=== PATIENT | female | born 1975 | race Asian ===

== ENCOUNTER → 2017-05-24 | Outpatient (CLI) | payer BC | LOC: BRMIMAGING 08:30 | PROVIDERS: ATTEND Family Medicine | DX: Z12.31 Encounter for screening mammogram for malignant neoplasm of breast (principal) | CPT/HCPCS: G0202 ==

== ENCOUNTER 2018-04-29 11:44 | Day surgery (SDC) | payer BC ==
--- NOTE | 2018-04-29 00:35 | PDGENHP ---
History and Physical - Chief Complaint RIGHT HIP PAIN - History of Present Illness Diagnosis: 1. ~~Right Florentino Hip Dyplasia; Left Borderline Dysplasia, RIGHT SIDE SYMPTOMATIC 2.~~~Bilateral~Femoroacetabular impingement (ILA) Cam type,~with~resultant labral tear 3. Minimal Early OA, medial joint space narrowing Rt hip HISTORY OF PRESENT ILLNESS: Susana Hiis a 42 y.o.~very~~active female~who I have had the pleasure to consult on today. 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 ~Susana Hienjoys trail running, hiking, rock climbing, cycling, swimming, cross country skiing, and snowboarding. Susana Lama's~Right~hip pain started~July 2016 after falling while snowboarding, with~little~recalled trauma or injury, and with no~previous complaints. Susana Hi has~a known history of hip dysplasia. Susana Lama was referred by Dr. Pena. Presentation today is of~anterior~right~hip pain. ~The hip~does not~wake her~at night and does~click and catch on her. Sitting~can be uncomfortable~for her.~ Susana Hidoes~report suffering from lower back pain episodes. She has posterior thigh pain pain down right leg but does not go past knee. Susana Hihas not~participated in physical therapy and has not~tried other conservative measures..~She~has not~received sufficient symptomatic improvement. Susana Hihas not~utilized medication for pain management. Susana Hidenies issues with the left~hip. ~ Susana Hiunderstands that she~has a hip and pelvis problem which should be researched and wishes to get a better understanding of her~hip status, followed by an establishment of a treatment strategy, hoping she~would be able to get back to her~well being active life. History: Past medical history:~~ None which is relevant~ Relevant familial history:~None which is relevant~ Past surgical history:~ None Susana Hihas never received general anesthesia. I have reviewed, verified and agree with the past medical, surgical, family and social history. Current Medications:~currently has no medications in their medication list. ALLERGIES:~has No Known Allergies. Objective: Physical Examination: Susana Hiis 5~feet 7~inches tall and weighs 125~Lbs. Susana Hiis AAO x3; she~is well-nourished, in NAD. Skin is warm and dry. ~Breathing is non-labored. ~CV with RRR by pulse. Abdomen is soft, NTND. Currently,~she~walks with a normal~gait. Trendelenburg sign is~negative~and proprioception is reduced,~right~side. She~presents with mild~signs of joint laxity. Beightons Score:~1 Lower spine examination is~negative~for sciatic or femoral nerve irritation with negative~SLR &~femoral stretch tests. Range of motion of the spine is normal~for flexion, extension, and rotations, with no~associated pain. Strength, Sensation and pulses are~normal -~bilaterally~BILATERAL GREAT TOE PARATHESIA and NUMBNESS Ankles and knees exams are~normal~and no~mal-alignment is evident. She~has~leg length discrepancy.~LEFT SHORT 1 CM Thigh circumference is~symmetric~with no evidence for muscle atrophy~on both~ sides. Hip ROM (degrees): FL ER At 90~hip FL IR At 90~hip FL AB AD EX IR Neutral hip ER Neutral hip R 110 45 40 40 5 10 45 30 L 115 50 30 40 5 10 55 35 Specific hip and pelvis tests: Impingement Test MIRIAM Roll Add. Longus R +++ +++ Negative Negative L Negative Negative Negative Negative Glut. Med ITB Posterior Imp R Negative 5/5 strength Negative 5/5 strength Negative L Negative 5/5 strength Negative 5/5 strength Negative Squeeze test measured~normal Bony Symphysis pubis is~pain free~to touch while concentric activity of the rectus abdominis, does not~produce pain at its insertion. Ilio Psos specific tests are~negative for pain during cycling for~both hips~and remarkable for non painful snap HF has~no pain, good strength~both hips. Right hip~capsule tenderness Greater trochanteric burse is~painful~on the right hip. Piriformis tests: FAIR is~negative,~with no~local signs of neuritis related to sciatic nerve. SIJs examination is~normal~with normal~MIRIAM in relation and local tenderness. Hamstrings tests are~negative~functional contraction and negative~tendinopathy both hips. On a daily basis, the following percentages reflectJosh Lama's overall total pain : Deep hip:~80% Right GT:~20% Imaging: Radiology studies which I have personally reviewed, analyzed and measured are below: XR: AP of the hip and pelvis: Performed in a~good~technique Coccyx~is at the level of the~pubic symphysis 0~degrees [place] Lines are~preserved. Minimal~Pathological signs are seen in the Symphysis Pubis. Minimal~Pathological signs are seen at the Ischial tuberosity. ~ Specific measurements show: NSA~ LCE Sourcil~Angle Sharp's angle Lat. Cam Lat. Pincer C.Over~sign Head~Coverage % ATDmm R N 17 12 41 + - - 72 N L N 24 5 37 + - - 78 N Pos. wall sign ISS NAD ~~Dysplasia Comments R ++ Negative 15.3~mm ++ L ++ Negative 17.4~mm + Sclerosis Sup. Lat. OA Cysts Joint Space-WBZ Joint Space-Medial R + Negative Negative 5.3~mm 5.7~mm/2.4mm L + Negative Negative 4.8~mm 4.9~mm X Table lateral: Anterior cam lesion is~seen~on both hips. Alpha Angle: ~ Right~76~dergrees Left~67~degrees MRI shows:~labral tear with labral hypertrophy, good cartilage quality, no bone edema or cysts. Impression and plan: Sheree Hiis a 42 y.o.~active female~suffering from symptomatic Right~hip pain due to Hip Dyplasia~and~Femoroacetabular impingement (ILA) Cam type,~with~ resultant labral tear causing significant disability to~her~and altering her~ sport and life activities. She also had early OA signs in the form of medial joint space narrowing. Physical examination, imaging, and~her~story correspond with the diagnosis mentioned above. I explained that hip dysplasia is a condition wherein the hip joint has excessive play~and instability due to a variety of factors, including the depth and adequacy of the socket, the orientation of the femur bone, and ligament laxity around the hip joint. Dysplasia ranges in severity from borderline to florentino, with treatment options being specific to the specific nature of the problem. Left untreated, the instability in the hip joint can cause progressive tearing of the labrum and deterioration of the surface cartilage, ultimately resulting in progressive osteoarthritis of the hip. I explained that femoroacetabular impingement (ILA - Cam type) arises due to a bony or soft tissue conflict between the femur (ball) and acetabulum (socket) caused by an abnormality in the shape of the femoral head and neck. Over time, repetitive impingement can result in damage to the labrum and adjacent surface cartilage within the socket, ultimately giving rise to progressive osteoarthritis of the hip. I explained that although a labral tear can be a source of pain, it is rarely the root of the problem and typically occurs secondary to an underlying abnormality in the shape and mechanics of the hip joint. I reviewed conservative treatment options for Dysplasia and ILA including activity modification to avoid positions of impingement or instability, physical therapy, non-steroidal anti-inflammatory medications, and various injections (corticosteroid and PRP) aimed at reducing inflammation in the hip joint or/and preventing dynamic instability and impingement. PRP injections may promote healing and reduce symptoms in certain cases but it will not repair chronically damaged tissue. Although these measures may help to buy time~and reduce current level of symptoms, they are not a definitive solution to the problem given the underlying abnormality in the shape of the hip joint. Patients who have failed conservative management and continue to experience symptoms are candidates for definitive surgical treatment, which may consist of hip arthroscopy alone or in combination with more invasive bony realignment procedures of the hip socket and/or femur called periacetabular osteotomy (MIRIAM) or derotational femoral osteotomy (DFO). Hip arthroscopy typically includes treating the labrum with either repair or reconstruction of the torn labrum; as well as addressing the underlying abnormalities by restoring the normal shape to the hip joint. If the cartilage is damaged a Microfracture surgical procedure may also be necessary to help stimulate the growth of fibrocartilage. If a patient requires a labral reconstruction or a Microfracture, the initial rehabilitation from the surgery may take longer, but the oysterman results are typically favorable. I reviewed the technical aspects of periacetabular osteotomy (MIRIAM) including risks, benefits, and expected course of recovery.~Susana Lama~understands that MIRIAM is an inpatient procedure carried out through two medium sized incisions on the front and back of the hip joint. The hip socket is cut, realigned, and stabilized with 2 3 internal screws. Risks include infection, bleeding, injury to nearby nerves or vessels, stiffness, persistent pain, instability, failure of bony healing, implant related complications, and venous thromboembolic disease. Rarely, revision surgery may be required to address these problems. Risks, potential complications, side effects and recovery from surgical procedure were discussed in length. We explained how this surgery is an open procedure, and though patients tend to do well in the long-term, it involves significant pain in the first 2-4 weeks post-op and a rather lengthy rehab.~Overall recovery takes approximately 6 12~months depending on the extent of damage and degree of repair. Susana Hiunderstands that she~will undergo hip arthroscopy 1 week prior to the MIRIAM to address damage inside the hip joint. Susana Hiunderstands that hip arthroscopy and MIRIAM are two separate procedures that are best performed one week apart, with the arthroscopy commencing first to "tighten up" any pathology evident in the hip joint (labral repair, etc.) and the MIRIAM open procedure occurring 7-10 days later to realign the acetabulum. We also discuss the implications of the minimal early OA and surgical outcome. Susana Hiwill review the info presented. In order to obtain more detailed information regarding the alignment, orientation, and shape of the bony hip and pelvis I will order a CT scan to be performed. The results of the CT scan, including femoral torsion and acetabular version measured values and 3D images, will aid me in deciding on the best treatment strategy and surgical pre-planning. Susana Hiwill contact us if she~wishes to pursue further treatment in the future. Susana Hiis happy with this plan. I have also supplied~her~with handouts, outlining the expected surgical treatment and rehab involved. I wish~Susana LamaShereeall the best, ~~ NORMA Avila History Information - Allergies/Home Medication List Allergies/Adverse Reactions: No Known Allergies Allergy (Verified 04/08/18 10:03) Home Medications: Ascorbic Acid [Vitamin C 500 mg (*)] 500 mg PO DAILY 04/24/18 [Last Taken Unknown] Cholecalciferol Vit D3 [Vitamin D3 (*)] 1,000 units PO DAILY 04/24/18 [Last Taken Unknown] Herbals/Supplements -Info Only 1 ea PO DAILY 04/24/18 [Last Taken Unknown] [place]-3 Fatty Acids [Fish Oil 1000 mg (*)] 1,000 mg PO DAILY 04/24/18 [Last Taken Unknown] I have personally reviewed and updated: medical history - Social History Smoking Status: Never smoked Review of Systems Review of Systems: Physical Exam Physical Exam:
[2018-04-29] MEDS ORDERED: LIDOCAINE 1% 2 ML INJ ID PRN (12:26)
[2018-04-29] MEDS ORDERED: LR 1,000 ML IV ONE (12:26)
[2018-04-29] MEDS ORDERED: ceFAZolin 2 GM/DEXTROSE 100 ML IV ONE (12:26)
[2018-04-29] MEDS ORDERED: PREGABALIN 150 MG CAP PO ONE (12:26)
[2018-04-29] MEDS ORDERED: ACETAMINOPHEN 500 MG TAB PO ONE (12:26)
[2018-04-29] MEDS ORDERED: BUPIVACAINE 0.25% 30 ML SDV ONE (12:50)
[2018-04-29] MEDS ORDERED: EPINEPHrine 30 MG/30 ML MDV (0.1 MG/0.1 ML) ONE (12:50)
[2018-04-29] MEDS ORDERED: MIDAZOLAM 2 MG/2 ML VIAL IVP ONE (13:25)
[2018-04-29] MEDS ORDERED: LIDOCAINE 2% 100 MG/5 ML SYR ONE (13:32)
[2018-04-29] MEDS ORDERED: ROCURONIUM 100 MG/10 ML VIAL ONE (13:32)
[2018-04-29] MEDS ORDERED: ONDANSETRON 4 MG/2 ML VIAL ONE ×3 (13:32→19:38)
[2018-04-29] MEDS ORDERED: fentaNYL 250 MCG/5 ML INJ ONE (13:32)
[2018-04-29] MEDS ORDERED: DEXAMETHASONE 4 MG/ML VIAL ONE (13:32)
[2018-04-29] MEDS ORDERED: PROPOFOL 200 MG/20 ML VIAL ONE (13:32)
--- NOTE | 2018-04-29 14:23 | PDANEPAE ---
ANE History of Present Illness R hip labral tear, herre for R hip arthroscopy ANE Past Medical History - Cardiovascular History Hx Hypertension: No Hx Arrhythmias: No Hx Chest Pain: No Hx Coronary Artery / Peripheral Vascular Disease: No Hx CHF / Valvular Disease: No Hx Palpitations: No - Pulmonary History Hx COPD: No Hx Asthma/Reactive Airway Disease: No Hx Recent Upper Respiratory Infection: No Hx Oxygen in Use at Home: No Hx Sleep Apnea: No Sleep Apnea Screening Result - Last Documented: Negative - Neurologic History Hx Cerebrovascular Accident: No Hx Seizures: No Hx Dementia: No - Endocrine History Hx Diabetes: No - Renal History Hx Renal Disorders: No - Liver History Hx Hepatic Disorders: No - Neurological & Psychiatric Hx Hx Neurological and Psychiatric Disorders: No Neurological / Psychiatric History Comment: post- depression, 2011 - Cancer History Hx Cancer: No - Congenital Disorder History Hx Congenital Disorders: No - GI History Hx Gastrointestinal Disorders: No - Other Health History Other Health History: Intermittenly gets hives on arms, torso of unknown origin , last February 2018. Permanent retainer behind top and bottom teeth - Chronic Pain History Chronic Pain: No - Surgical History Prior Surgeries: breast augmentation. wisdom tooth extraction ANE Review of Systems Review of Systems: - Exercise capacity METS (RN): 5 METS ANE Patient History - Allergies Allergies/Adverse Reactions: No Known Allergies Allergy (Verified 04/08/18 10:03) - Home Medications Home Medications: Ascorbic Acid [Vitamin C 500 mg (*)] 500 mg PO DAILY 04/24/18 [Last Taken Unknown] Cholecalciferol Vit D3 [Vitamin D3 (*)] 1,000 units PO DAILY 04/24/18 [Last Taken Unknown] Herbals/Supplements -Info Only 1 ea PO DAILY 04/24/18 [Last Taken Unknown] [place]-3 Fatty Acids [Fish Oil 1000 mg (*)] 1,000 mg PO DAILY 04/24/18 [Last Taken Unknown] - NPO status NPO Since - Liquids (Date): 04/29/18 NPO Since - Liquids (Time): 10:40 NPO Since - Solids (Date): 04/28/18 NPO Since - Solids (Time): 09:30 - Smoking Hx Smoking Status: Never smoked - Family Anes Hx Family Hx Anesthesia Complications: none ANE Labs/Vital Signs - Vital Signs Blood Pressure: 107/64 Heart Rate: 60 Respiratory Rate: 16 O2 Sat (%): 99 Height: 170.18 cm Weight: 55.792 kg ANE Physical Exam - Airway Neck exam: FROM Mallampati Score: Class 3 Mouth exam: small mouth opening - Pulmonary Pulmonary: no respiratory distress, other (has been "losing her voice for a few days." Denies cough, phlegm, dyspnea, fevers, chills) - Cardiovascular Cardiovascular: regular rate and rhythym - ASA Status ASA Status: I ANE Anesthesia Plan Anesthesia Plan: general endotracheal anesthesia
[2018-04-29] MEDS ORDERED: ACETAMINOPHEN 500 MG TAB PO PRN (16:55)
[2018-04-29] MEDS ORDERED: ALBUTEROL 3 ML DEYVIAL IH PRN (16:55)
[2018-04-29] MEDS ORDERED: HYDROmorphONE/DILAUDID 2 MG/ML INJ IVP PRN (16:55)
[2018-04-29] MEDS ORDERED: HYDROCODONE/APAP 5/325 TAB PO PRN (16:55)
[2018-04-29] MEDS ORDERED: NALOXONE HCL 0.4 MG/ML INJ IVP PRN (16:55)
[2018-04-29] MEDS ORDERED: oxyCODONE IR 5 MG TAB PO PRN (16:55)
[2018-04-29] MEDS ORDERED: DEXAMETHASONE 4 MG/ML VIAL IVP PRN (16:55)
[2018-04-29] MEDS ORDERED: RANITIDINE 50 MG/2 ML VIAL ONE (16:58)
[2018-04-29] MEDS ORDERED: PHENYLEPHRINE HCL 100 MCG/ML SYR ONE (16:58)
--- NOTE | 2018-04-29 17:14 | POSTANESTH ---
Post Anesthetic Evaluation Cardiovascular Status: Normal, Stable Respiratory Status: Normal, Stable Level of Consciousness/Mental Status: Can Participate in Eval, Alert and Oriented Pain Control: Adequate, Prn Tx Ordered Nausea/Vomiting Control: Adequate, Prn Tx Ordered
[2018-04-29] MEDS ORDERED: fentaNYL 100 MCG/2 ML INJ ONE (17:25)
[2018-04-29] MEDS: fentaNYL 100 MCG/2 ML INJ IVP PRN ×2 (17:26→17:39)
[2018-04-29] MEDS ORDERED: HYDROmorphONE/DILAUDID 1 MG/ML INJ ONE (17:45)
--- NOTE | 2018-04-29 17:46 | POSTOPPROG ---
Post Op Note Date of Operation: 04/29/18 Surgeon: Eyad Montgomery Clam Shovel Operator: Bertha Mccollum Pre-op Diagnosis: R hip dysplasia and ILA Post-op Diagnosis: Same Procedure: R hip arthroscopic labral repair, cam resection, capsular repair Inf/Abcess present in the surg proc area at time of surgery?: No EBL: Minimal (Significant cartilage damage on femoral head and acetabulum.)
[2018-04-29] MEDS ORDERED: ONDANSETRON DISINTEGRATING 4 MG TAB ONE (18:02)
[2018-04-29] MEDS: ONDANSETRON 4 MG/2 ML VIAL IVP PRN ×2 (18:05→19:41)
[2018-04-29 20:19] VITALS: BP 115/72
== END 2018-04-29 20:19 | disposition home or self-care (01) ==
LOC: FSGY 11:44
PROVIDERS: ATTEND Orthopaedic Surgery Sports Medicine
DX: M25.851 Other specified joint disorders, right hip (principal); M25.852 Other specified joint disorders, left hip; Q65.89 Other specified congenital deformities of hip
CPT/HCPCS: C1713; J0171; J0690; J1100; J1170; J2001; J2250; J2370; J2405; J2704; J2780; J3010

== ENCOUNTER 2018-05-06 11:02 | Inpatient (IN) | payer BC ==
--- NOTE | 2018-05-05 20:21 | PDGENHP ---
History and Physical - Chief Complaint RIGHT HIP PAIN - History of Present Illness Diagnosis: 1. ~~Right Florentino Hip Dyplasia; Left Borderline Dysplasia, RIGHT SIDE SYMPTOMATIC 2.~~~Bilateral~Femoroacetabular impingement (ILA) Cam type,~with~resultant labral tear 3. Minimal Early OA, medial joint space narrowing Rt hip HISTORY OF PRESENT ILLNESS: Susana Hiis a 42 y.o.~very~~active female~who I have had the pleasure to consult on today. 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 ~Susana Hienjoys trail running, hiking, rock climbing, cycling, swimming, cross country skiing, and snowboarding. Susana Lama's~Right~hip pain started~July 2016 after falling while snowboarding, with~little~recalled trauma or injury, and with no~previous complaints. Susana Hi has~a known history of hip dysplasia. Susana Lama was referred by Dr. Pena. Presentation today is of~anterior~right~hip pain. ~The hip~does not~wake her~at night and does~click and catch on her. Sitting~can be uncomfortable~for her.~ Susana Hidoes~report suffering from lower back pain episodes. She has posterior thigh pain pain down right leg but does not go past knee. Susana Hihas not~participated in physical therapy and has not~tried other conservative measures..~She~has not~received sufficient symptomatic improvement. Susana Hihas not~utilized medication for pain management. Susana Hidenies issues with the left~hip. ~ Susana Hiunderstands that she~has a hip and pelvis problem which should be researched and wishes to get a better understanding of her~hip status, followed by an establishment of a treatment strategy, hoping she~would be able to get back to her~well being active life. History: Past medical history:~~ None which is relevant~ Relevant familial history:~None which is relevant~ Past surgical history:~ None Susana Hihas never received general anesthesia. I have reviewed, verified and agree with the past medical, surgical, family and social history. Current Medications:~currently has no medications in their medication list. ALLERGIES:~has No Known Allergies. Objective: Physical Examination: Susana Hiis 5~feet 7~inches tall and weighs 125~Lbs. Susana Hiis AAO x3; she~is well-nourished, in NAD. Skin is warm and dry. ~Breathing is non-labored. ~CV with RRR by pulse. Abdomen is soft, NTND. Currently,~she~walks with a normal~gait. Trendelenburg sign is~negative~and proprioception is reduced,~right~side. She~presents with mild~signs of joint laxity. Beightons Score:~1 Lower spine examination is~negative~for sciatic or femoral nerve irritation with negative~SLR &~femoral stretch tests. Range of motion of the spine is normal~for flexion, extension, and rotations, with no~associated pain. Strength, Sensation and pulses are~normal -~bilaterally~BILATERAL GREAT TOE PARATHESIA and NUMBNESS Ankles and knees exams are~normal~and no~mal-alignment is evident. She~has~leg length discrepancy.~LEFT SHORT 1 CM Thigh circumference is~symmetric~with no evidence for muscle atrophy~on both~ sides. Hip ROM (degrees): FL ER At 90~hip FL IR At 90~hip FL AB AD EX IR Neutral hip ER Neutral hip R 110 45 40 40 5 10 45 30 L 115 50 30 40 5 10 55 35 Specific hip and pelvis tests: Impingement Test MIRIAM Roll Add. Longus R +++ +++ Negative Negative L Negative Negative Negative Negative Glut. Med ITB Posterior Imp R Negative 5/5 strength Negative 5/5 strength Negative L Negative 5/5 strength Negative 5/5 strength Negative Squeeze test measured~normal Bony Symphysis pubis is~pain free~to touch while concentric activity of the rectus abdominis, does not~produce pain at its insertion. Ilio Psos specific tests are~negative for pain during cycling for~both hips~and remarkable for non painful snap HF has~no pain, good strength~both hips. Right hip~capsule tenderness Greater trochanteric burse is~painful~on the right hip. Piriformis tests: FAIR is~negative,~with no~local signs of neuritis related to sciatic nerve. SIJs examination is~normal~with normal~MIRIAM in relation and local tenderness. Hamstrings tests are~negative~functional contraction and negative~tendinopathy both hips. On a daily basis, the following percentages reflectJosh Lama's overall total pain : Deep hip:~80% Right GT:~20% Imaging: Radiology studies which I have personally reviewed, analyzed and measured are below: XR: AP of the hip and pelvis: Performed in a~good~technique Coccyx~is at the level of the~pubic symphysis 0~degrees [place] Lines are~preserved. Minimal~Pathological signs are seen in the Symphysis Pubis. Minimal~Pathological signs are seen at the Ischial tuberosity. ~ Specific measurements show: NSA~ LCE Sourcil~Angle Sharp's angle Lat. Cam Lat. Pincer C.Over~sign Head~Coverage % ATDmm R N 17 12 41 + - - 72 N L N 24 5 37 + - - 78 N Pos. wall sign ISS NAD ~~Dysplasia Comments R ++ Negative 15.3~mm ++ L ++ Negative 17.4~mm + Sclerosis Sup. Lat. OA Cysts Joint Space-WBZ Joint Space-Medial R + Negative Negative 5.3~mm 5.7~mm/2.4mm L + Negative Negative 4.8~mm 4.9~mm X Table lateral: Anterior cam lesion is~seen~on both hips. Alpha Angle: ~ Right~76~dergrees Left~67~degrees MRI shows:~labral tear with labral hypertrophy, good cartilage quality, no bone edema or cysts. Impression and plan: Sheree Hiis a 42 y.o.~active female~suffering from symptomatic Right~hip pain due to Hip Dyplasia~and~Femoroacetabular impingement (ILA) Cam type,~with~ resultant labral tear causing significant disability to~her~and altering her~ sport and life activities. She also had early OA signs in the form of medial joint space narrowing. Physical examination, imaging, and~her~story correspond with the diagnosis mentioned above. I explained that hip dysplasia is a condition wherein the hip joint has excessive play~and instability due to a variety of factors, including the depth and adequacy of the socket, the orientation of the femur bone, and ligament laxity around the hip joint. Dysplasia ranges in severity from borderline to florentino, with treatment options being specific to the specific nature of the problem. Left untreated, the instability in the hip joint can cause progressive tearing of the labrum and deterioration of the surface cartilage, ultimately resulting in progressive osteoarthritis of the hip. I explained that femoroacetabular impingement (ILA - Cam type) arises due to a bony or soft tissue conflict between the femur (ball) and acetabulum (socket) caused by an abnormality in the shape of the femoral head and neck. Over time, repetitive impingement can result in damage to the labrum and adjacent surface cartilage within the socket, ultimately giving rise to progressive osteoarthritis of the hip. I explained that although a labral tear can be a source of pain, it is rarely the root of the problem and typically occurs secondary to an underlying abnormality in the shape and mechanics of the hip joint. I reviewed conservative treatment options for Dysplasia and ILA including activity modification to avoid positions of impingement or instability, physical therapy, non-steroidal anti-inflammatory medications, and various injections (corticosteroid and PRP) aimed at reducing inflammation in the hip joint or/and preventing dynamic instability and impingement. PRP injections may promote healing and reduce symptoms in certain cases but it will not repair chronically damaged tissue. Although these measures may help to buy time~and reduce current level of symptoms, they are not a definitive solution to the problem given the underlying abnormality in the shape of the hip joint. Patients who have failed conservative management and continue to experience symptoms are candidates for definitive surgical treatment, which may consist of hip arthroscopy alone or in combination with more invasive bony realignment procedures of the hip socket and/or femur called periacetabular osteotomy (MIRIAM) or derotational femoral osteotomy (DFO). Hip arthroscopy typically includes treating the labrum with either repair or reconstruction of the torn labrum; as well as addressing the underlying abnormalities by restoring the normal shape to the hip joint. If the cartilage is damaged a Microfracture surgical procedure may also be necessary to help stimulate the growth of fibrocartilage. If a patient requires a labral reconstruction or a Microfracture, the initial rehabilitation from the surgery may take longer, but the sales review clerk results are typically favorable. I reviewed the technical aspects of periacetabular osteotomy (MIRIAM) including risks, benefits, and expected course of recovery.~Susana Lama~understands that MIRIAM is an inpatient procedure carried out through two medium sized incisions on the front and back of the hip joint. The hip socket is cut, realigned, and stabilized with 2 3 internal screws. Risks include infection, bleeding, injury to nearby nerves or vessels, stiffness, persistent pain, instability, failure of bony healing, implant related complications, and venous thromboembolic disease. Rarely, revision surgery may be required to address these problems. Risks, potential complications, side effects and recovery from surgical procedure were discussed in length. We explained how this surgery is an open procedure, and though patients tend to do well in the long-term, it involves significant pain in the first 2-4 weeks post-op and a rather lengthy rehab.~Overall recovery takes approximately 6 12~months depending on the extent of damage and degree of repair. Susana Hiunderstands that she~will undergo hip arthroscopy 1 week prior to the MIRIAM to address damage inside the hip joint. Susana Hiunderstands that hip arthroscopy and MIRIAM are two separate procedures that are best performed one week apart, with the arthroscopy commencing first to "tighten up" any pathology evident in the hip joint (labral repair, etc.) and the MIRIAM open procedure occurring 7-10 days later to realign the acetabulum. We also discuss the implications of the minimal early OA and surgical outcome. Susana Hiwill review the info presented. In order to obtain more detailed information regarding the alignment, orientation, and shape of the bony hip and pelvis I will order a CT scan to be performed. The results of the CT scan, including femoral torsion and acetabular version measured values and 3D images, will aid me in deciding on the best treatment strategy and surgical pre-planning. Susana Hiwill contact us if she~wishes to pursue further treatment in the future. Susana Hiis happy with this plan. I have also supplied~her~with handouts, outlining the expected surgical treatment and rehab involved. I wish~Susana LamaShereeall the best, ~~ NORMA Avila History Information - Allergies/Home Medication List Allergies/Adverse Reactions: No Known Allergies Allergy (Verified 04/08/18 10:03) Home Medications: Ascorbic Acid [Vitamin C 500 mg (*)] 500 mg PO DAILY 04/24/18 [Last Taken Unknown] Cholecalciferol Vit D3 [Vitamin D3 (*)] 1,000 units PO DAILY 04/24/18 [Last Taken Unknown] Herbals/Supplements -Info Only 1 ea PO DAILY 04/24/18 [Last Taken Unknown] [place]-3 Fatty Acids [Fish Oil 1000 mg (*)] 1,000 mg PO DAILY 04/24/18 [Last Taken Unknown] I have personally reviewed and updated: medical history - Social History Smoking Status: Never smoked Review of Systems Review of Systems: Physical Exam Physical Exam:
[2018-05-06] MEDS ORDERED: TRANEXAMIC ACID 1,000 MG in NS 100 ML IV ONE (11:25)
[2018-05-06] MEDS ORDERED: PREGABALIN 150 MG CAP PO ONE (11:25)
[2018-05-06] MEDS ORDERED: SCOPOLAMINE HYDROBROMIDE 1 MG/3 DAYS PATCH TD ONE (11:25)
[2018-05-06] MEDS ORDERED: ACETAMINOPHEN 500 MG TAB PO ONE (11:25)
[2018-05-06] MEDS ORDERED: ceFAZolin 2 GM/DEXTROSE 100 ML IV ONE (11:25)
[2018-05-06] MEDS ORDERED: LR 1,000 ML IV ONE (11:26)
[2018-05-06] MEDS ORDERED: LIDOCAINE 1% 2 ML INJ ID PRN (11:26)
[2018-05-06 12:13] LABS: PLATELET COUNT 276 10^3/uL (150-400)
[2018-05-06] MEDS ORDERED: ALBUTEROL 3 ML DEYVIAL IH PRN (13:23)
[2018-05-06] MEDS ORDERED: NALOXONE HCL 0.4 MG/ML INJ IVP PRN ×3 (13:23→19:00)
[2018-05-06] MEDS ORDERED: MIDAZOLAM 2 MG/2 ML VIAL IVP ONE (13:23)
[2018-05-06] MEDS ORDERED: PROMETHAZINE HCL 25 MG/ML INJ IVP PRN ×2 (13:23→19:03)
[2018-05-06] MEDS ORDERED: ONDANSETRON 4 MG/2 ML VIAL IVP PRN ×3 (13:23→18:59)
[2018-05-06] MEDS ORDERED: HYDROmorphONE/DILAUDID 2 MG/ML INJ IVP PRN (13:23)
[2018-05-06] MEDS ORDERED: DEXAMETHASONE 4 MG/ML VIAL IVP PRN (13:23)
[2018-05-06] MEDS ORDERED: fentaNYL 100 MCG/2 ML INJ IVP PRN (13:23)
[2018-05-06] MEDS ORDERED: oxyCODONE IR 5 MG TAB PO PRN ×2 (13:23→19:00)
--- NOTE | 2018-05-06 13:24 | PDANEPAE ---
ANE History of Present Illness R MIRIAM ANE Past Medical History - Cardiovascular History Hx Hypertension: No Hx Arrhythmias: No Hx Chest Pain: No Hx Coronary Artery / Peripheral Vascular Disease: No Hx CHF / Valvular Disease: No Hx Palpitations: No - Pulmonary History Hx COPD: No Hx Asthma/Reactive Airway Disease: No Hx Recent Upper Respiratory Infection: No Hx Oxygen in Use at Home: No Hx Sleep Apnea: No Sleep Apnea Screening Result - Last Documented: Negative - Neurologic History Hx Cerebrovascular Accident: No Hx Seizures: No Hx Dementia: No - Endocrine History Hx Diabetes: No - Renal History Hx Renal Disorders: No - Liver History Hx Hepatic Disorders: No - Neurological & Psychiatric Hx Hx Neurological and Psychiatric Disorders: No Neurological / Psychiatric History Comment: post- depression, 2012 - Cancer History Hx Cancer: No - Congenital Disorder History Hx Congenital Disorders: No - GI History Hx Gastrointestinal Disorders: No - Other Health History Other Health History: Intermittenly gets hives on arms, torso of unknown origin , last February 2018. Permanent retainer behind top and bottom teeth - Chronic Pain History Chronic Pain: No - Surgical History Prior Surgeries: breast augmentation. wisdom tooth extraction ANE Review of Systems Review of Systems: - Exercise capacity METS (RN): 4 METS ANE Patient History - Allergies Allergies/Adverse Reactions: No Known Allergies Allergy (Verified 04/08/18 10:03) - Home Medications Home Medications: Ascorbic Acid [Vitamin C 500 mg (*)] 500 mg PO DAILY 04/24/18 [Last Taken ] Cholecalciferol Vit D3 [Vitamin D3 (*)] 1,000 units PO DAILY 04/24/18 [Last Taken 04/23/18] Herbals/Supplements -Info Only 1 ea PO DAILY 04/24/18 [Last Taken 05/04/18] [place]-3 Fatty Acids [Fish Oil 1000 mg (*)] 1,000 mg PO DAILY 04/24/18 [Last Taken 04/24/18] - NPO status NPO Since - Liquids (Date): 05/06/18 NPO Since - Liquids (Time): 09:30 NPO Since - Solids (Date): 05/05/18 NPO Since - Solids (Time): 20:30 - Smoking Hx Smoking Status: Never smoked - Family Anes Hx Family Hx Anesthesia Complications: none ANE Labs/Vital Signs - Labs Result Diagrams: 05/06/18 11:55 - Vital Signs Blood Pressure: 103/73 Heart Rate: 61 Respiratory Rate: 18 O2 Sat (%): 99 Height: 170.18 cm Weight: 57.153 kg ANE Physical Exam - Airway Neck exam: FROM Mallampati Score: Class 2 Mouth exam: normal dental/mouth exam - Pulmonary Pulmonary: clear to auscultation - Cardiovascular Cardiovascular: regular rate and rhythym - ASA Status ASA Status: I ANE Anesthesia Plan Anesthesia Plan: general endotracheal anesthesia
[2018-05-06] MEDS ORDERED: CITRATE DEXTROSE SOLN 500 ML BAG ONE (13:50)
[2018-05-06] MEDS ORDERED: PROPOFOL 200 MG/20 ML VIAL ONE (13:59)
[2018-05-06] MEDS ORDERED: fentaNYL 100 MCG/2 ML INJ ONE (13:59)
[2018-05-06] MEDS ORDERED: ONDANSETRON 4 MG/2 ML VIAL ONE (14:00)
[2018-05-06] MEDS ORDERED: ROCURONIUM 50 MG/5 ML VIAL ONE ×2 (14:00→15:35)
[2018-05-06] MEDS ORDERED: DEXAMETHASONE 4 MG/ML VIAL ONE ×2 (14:00)
[2018-05-06] MEDS ORDERED: METOCLOPRAMIDE 10 MG/2 ML VIAL ONE (14:00)
[2018-05-06] MEDS ORDERED: morphINE PF 5 MG/10 ML INJ ONE (14:03)
[2018-05-06] MEDS ORDERED: ePHEDrine SULFATE 25 MG/5 ML SYR ONE ×2 (15:34→18:21)
[2018-05-06] MEDS ORDERED: METOCLOPRAMIDE 10 MG/2 ML VIAL IVP PRN (16:55)
[2018-05-06] MEDS ORDERED: RN MESSAGE:REGARDING ANALGESIC ORDERING DR MISC SCH (16:55)
[2018-05-06] MEDS ORDERED: ceFAZolin 1 GM VIAL ONE (17:40)
[2018-05-06] MEDS ORDERED: TRANEXAMIC ACID 1,000 MG/10 ML VIAL ONE (18:15)
--- NOTE | 2018-05-06 18:23 | POSTANESTH ---
Post Anesthetic Evaluation Cardiovascular Status: Normal, Stable Respiratory Status: Normal, Stable Level of Consciousness/Mental Status: Can Participate in Eval, Alert and Oriented Pain Control: Adequate, Prn Tx Ordered Nausea/Vomiting Control: Adequate, Prn Tx Ordered Complications Possibly Related to Anesthesia: None Noted
[2018-05-06] MEDS ORDERED: SUGAMMADEX SODIUM 200 MG/2 ML VIAL IVP ONE (18:55)
[2018-05-06] MEDS ORDERED: LACTULOSE 20 GM/30 ML UDCUP PO PRN (18:59)
[2018-05-06] MEDS ORDERED: ACETAMINOPHEN 325 MG TAB PO PRN (18:59)
[2018-05-06] MEDS ORDERED: ONDANSETRON DISINTEGRATING 4 MG TAB PO PRN (18:59)
[2018-05-06] MEDS ORDERED: BISACODYL 10 MG SUPP PR PRN (18:59)
[2018-05-06] MEDS ORDERED: MAGNESIUM HYDROXIDE 30 ML UDCUP PO PRN (18:59)
[2018-05-06] MEDS ORDERED: POLYETHYLENE GLYCOL 3350 17 GM PKT PO PRN (18:59)
[2018-05-06] MEDS ORDERED: HYDROmorphONE/DILAUDID 6 MG/30 ML PCA IV PRN (19:00)
[2018-05-06] MEDS ORDERED: diphenhydrAMINE 25 MG CAP PO PRN (19:00)
--- NOTE | 2018-05-06 20:23 | SUROPNOTE ---
RACHELE Operative Report - Surgery Surgery was performed at [facility] on~05/06/18~ Diagnosis:~Right 1. Hip Acetabular Dysplasia ~ Operation: Right~Renea Acetabular Osteotomy (MIRIAM) Surgeon: Eyad Montgomery MD Employment Agency Manager:~~Bertha Sow MD Anesthetic: General +~spinal Procedure: General anesthetic. Antibiotics given. Cell saver in use. Fluoroscopy. Phase 1: Position lateral, diagonal skin incision between ischial tuberosity and greater trochanter as for posterior hip approach. Blunt split of glut max fibers. Identification of fat pad overlying sciatic nerve. Exposure of sciatic nerve under fat pad, gently retracting it away-medially to ischial tuberosity. Exposure of subcotoloid fossa proximal to short rotators. Using osteotomes and under fluoroscopy, osteotomy of subcotoloid fossa to sciatic notch proximal to ischial spine. Closure of lateral cut. Patient is turned supine. Phase 2: Skin incision just distal to ASIS. Using diathermy the iliac spine was exposed and inguinal ligament + Sartorious were retracted medially, taking the LFCN with them, protecting it. Inner ilium was dissected from iliacus muscle bluntly , with a cob and swab. Dissection continued towards lateral superior ramus pubis. Using fluoroscopy an osteotomy of lateral superior ramus, just medial to tear drop, was performed with~curved fish mouth osteotome. Phase 3: Osteotomy lines of the ilium were marked with diathermy as pre planned according to XR/CT and expected correction of acatabulum. 2 Shanz screws were drilled into central acetabular fragment, corresponding with planned correction angles, in order to mobilize central acetabular fragment after osteotomy is complete. ~Iliac osteotomy was performed with reciprocating saw and the main acetabular fragment was moved to realign weight bearing position. After confirmation of correction using fluoroscopy in AP and false profile planes, the fragment was fixed with 2 -~5.5mm~~full threaded~screws~and 1 -~4mm~~full threaded~screw. Inguinal ligament and Sartorious were attached back to ASIS through drill holes. Incision was closed according to soft tissue layers. Skin was closed with~subdermal Monocryl. Final fluoro shots were obtained to confirm position/correction. After surgery~Susana Lama~moved both lower limbs and had no NV motor compromise. Specimen - none Bleeding -~900ml Complication - none Evaluation under anesthesia: IR at 90 degrees hip flexion prior to MIRIAM was~40~degrees and after MIRIAM was 20~ degrees. Bleeding:~900~cc into cell-saver, 700~of blood products were returned to patient. Post op instructions: 1.~Non~weight bearing crutches for 6 weeks 2. Epidural analgesia for 24-48 hours 3. Continuous SCD 4. Aspirin 81 mg X1 day once Epidural is discontinued 5. Avoid hip flexion past 90 and hip External rotation. 6. PT according to my recommendations at follow up visit Kind regards, Dr. Eyad Montgomery
[2018-05-06] MEDS: NS 1,000 ML IV SCH (20:38)
--- NOTE | 2018-05-06 21:04 | PDHOSCONS ---
History and Physical - Chief Complaint hip pain - History of Present Illness 42 yo F with no significant PMH here s/p MIRIAM for right hip dysplasia. At the time of my evaluation patient is in the post operative period and experiencing some nausea but denies any pain and has no other complaints. Patient notes she is otherwise healthy and active. History Information - Allergies/Home Medication List Allergies/Adverse Reactions: No Known Allergies Allergy (Verified 04/08/18 10:03) Home Medications: Ascorbic Acid [Vitamin C 500 mg (*)] 500 mg PO DAILY 04/24/18 [Last Taken ] Cholecalciferol Vit D3 [Vitamin D3 (*)] 1,000 units PO DAILY 04/24/18 [Last Taken 04/23/18] Herbals/Supplements -Info Only 1 ea PO DAILY 04/24/18 [Last Taken 05/04/18] [place]-3 Fatty Acids [Fish Oil 1000 mg (*)] 1,000 mg PO DAILY 04/24/18 [Last Taken 04/24/18] I have personally reviewed and updated: family history, medical history, social history, surgical history - Past Medical History Additional medical history: right hip dysplasia. post depression - Surgical History Additional surgical history: MIRIAM performed today. breast augmentation. wisdom tooth removal - Family History Positive for: non-pertinent - Social History Smoking Status: Never smoked Alcohol Use: Rarely Drug Use: None Review of Systems Review of Systems: ROS: 10pt was reviewed & negative except for what was stated in HPI & below Physical Exam Physical Exam: Temp Pulse Resp BP Pulse Ox 36.3 C 59 L 16 93/64 L 93 05/06/18 20:27 05/06/18 20:27 05/06/18 20:27 05/06/18 20:27 05/06/18 20:27 O2 (L/minute) 3 Constitutional: no apparent distress, appears nourished Eyes: PERRL Ears, Nose, Mouth, Throat: moist mucous membranes, hearing normal Cardiovascular: regular rate and rhythym, no murmur, rub, or gallop, No edema Respiratory: no respiratory distress, no rales or rhonchi, clear to auscultation Gastrointestinal: normoactive bowel sounds, soft, non-tender abdomen Genitourinary: no bladder tenderness Skin: warm, normal color Musculoskeletal: no muscle tenderness Neurologic: AAOx3 Psychiatric: interacting appropriately, not anxious, not encephalopathic Lab Data & Imaging Review 05/06/18 11:55 WBC 4.95 10^3/uL (3.80-9.50) 05/06/18 11:55 RBC 4.44 10^6/uL (4.18-5.33) 05/06/18 11:55 Hgb 13.1 g/dL (12.6-16.3) 05/06/18 11:55 Hct 39.5 % (38.0-47.0) 05/06/18 11:55 MCV 89.0 fL (81.5-99.8) 05/06/18 11:55 MCH 29.5 pg (27.9-34.1) 05/06/18 11:55 MCHC 33.2 g/dL (32.4-36.7) 05/06/18 11:55 RDW 12.0 % (11.5-15.2) 05/06/18 11:55 Plt Count 276 10^3/uL (150-400) 05/06/18 11:55 MPV 10.1 fL (8.7-11.7) 05/06/18 11:55 Neut % (Auto) 63.7 % (39.3-74.2) 05/06/18 11:55 Lymph % (Auto) 24.2 % (15.0-45.0) 05/06/18 11:55 [place] % (Auto) 9.1 % (4.5-13.0) 05/06/18 11:55 Eos % (Auto) 2.4 % (0.6-7.6) 05/06/18 11:55 Baso % (Auto) 0.4 % (0.3-1.7) 05/06/18 11:55 Nucleat RBC Rel Count 0.0 % (0.0-0.2) 05/06/18 11:55 Absolute Neuts (auto) 3.15 10^3/uL (1.70-6.50) 05/06/18 11:55 Absolute Lymphs (auto) 1.20 10^3/uL (1.00-3.00) 05/06/18 11:55 Absolute Monos (auto) 0.45 10^3/uL (0.30-0.80) 05/06/18 11:55 Absolute Eos (auto) 0.12 10^3/uL (0.03-0.40) 05/06/18 11:55 Absolute Basos (auto) 0.02 10^3/uL (0.02-0.10) 05/06/18 11:55 Absolute Nucleated RBC 0.00 10^3/uL (0-0.01) 05/06/18 11:55 Immature Gran % 0.2 % (0.0-1.1) 05/06/18 11:55 Immature Gran # 0.01 10^3/uL (0.00-0.10) 05/06/18 11:55 Assessment & Plan Assessment: 42 yo F with no PMH other than chronic right hip pain due to hip dysplasia and ILA now s/p MIRIAM # right hip pain: with hx of hip dysplasia and femoracetabular impingement and resultant labral tear and now s/p periacetabular osteotomy per Dr. Montgomery. Patient currently doing well in the post operative period. Will continue opiates as needed for pain management. Patient will ambulate with assist in the am. # nausea: likely 2/2 anesthesia, will continue prn zofran/phenergan for now. # hypotension: in post operative setting and mild, will monitor Patient new to my care. Old records reviewed and summarized as above. Care plan reviewed with ortho LORRI. Thank you for this consultation, medicine will continue to follow while in house.
[2018-05-06] MEDS: SENNOSIDES/DOCUSATE SODIUM TAB PO SCH (23:00)
[2018-05-06] MEDS: NAPROXEN SODIUM 220 MG TAB PO SCH (23:01)
[2018-05-07] MEDS: RN MESSAGE:DATE/TIME OF ADMIN MISC SCH ×3 (02:06→16:27)
[2018-05-07] MEDS: NS 1,000 ML IV SCH (06:39)
--- NOTE | 2018-05-07 07:48 | PDPAINCON ---
Pain Management Consultation Patient referred by : Yo - Subjective Pain at rest (/10): 0 Pain is: no pain at all - Objective Technique: spinal opioid Vital signs: stable - Assessment/Plan Additional comments: Pain Well controlled, Spinal Duramorph will wear off this morning and she will need to transition to BOSTON CUTTER or Oral pain meds, per Ortho.
--- NOTE | 2018-05-07 08:26 | PDMN ---
Medical Necessity Medical necessity: [facility] Musculoskeletal sgy : Cristian PINEDA [facility] INPT only Auth # [id number] APPROVED FOR INPT SURGERY, LOS 8 DAYS
[2018-05-07] MEDS: NAPROXEN SODIUM 220 MG TAB PO SCH ×3 (08:40→21:43)
[2018-05-07] MEDS: PANTOPRAZOLE SODIUM 40 MG TAB PO SCH (08:41)
[2018-05-07] MEDS: SENNOSIDES/DOCUSATE SODIUM TAB PO SCH ×2 (08:42→21:42)
--- NOTE | 2018-05-07 10:14 | ASMTCMCOM ---
CM Note CM Note Notes: Patient is POD #1 MIRIAM for hip dysplasia. She is doing well. Patient lives alone, but her ex-mother in law will be staying with her upon discharge. PT has cleared her for home with outpatient follow up. Case Management available if needs change, otherwise anticipate an independent discharge. Date Signed: 05/07/2018 10:13 AM Electronically Signed By:Chloe Valdes RN
[2018-05-07] MEDS ORDERED: PATCH REMOVAL 1 EA PATCH TD ONE (11:45)
--- NOTE | 2018-05-07 12:53 | HOSPPROG ---
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 Today is my first encounter w the patient, chart reviewed. *right hip pain due to hip dysplasia and femoroacetabular impingement w resultant labral tear -s/p MIRIAM -having some pain when she coughs that radiates down her leg *hyperkalemia -recheck *hypoxemia -on room air during my evaluation *anemia -will follow *hypotension -systolic runs low at baseline -will cont fluids for now *nausea post op -none during my evaluation *Plan: check K level now, parker removal when ok w surgical team, cont PT and OT. Subjective: Susana Lama feels uncomfortable in her back area during my evaluation, not having significant pain while sitting. Objective: Vital Signs Temp Pulse Resp BP Pulse Ox 36.8 C 77 14 91/50 L 99 05/07/18 12:00 05/07/18 12:00 05/07/18 12:00 05/07/18 12:00 05/07/18 12:00 Laboratory Results 05/07/18 04:35 05/07/18 04:35 05/06/18 05/07/18 05/08/18 05:59 05:59 05:59 Intake Total 3220 1336 Output Total 2200 Balance 1020 1336 - Physical Exam Constitutional: uncomfortable Eyes: PERRL Ears, Nose, Mouth, Throat: hearing normal Cardiovascular: regular rate and rhythym Respiratory: no respiratory distress Gastrointestinal: normoactive bowel sounds Genitourinary: parker in urethra Skin: warm, other (left hip area w swelling) Neurologic: AAOx3 Psychiatric: interacting appropriately ICD10 Worksheet Patient Problems: Problems Problem Status Onset Hip dysplasia Acute - ICD10 Problem Qualifiers (1) Hip dysplasia
[2018-05-07] MEDS: DIAZEPAM 2 MG TAB PO PRN (21:53)
--- NOTE | 2018-05-07 22:44 | SOAPPROG ---
RAGHAVENDRA Progress Note Assessment/Plan: Assessment: 1 day post op Right Periacetabular Osteotomy Plan: D/C parker in next day or two Oral analgesia Up with PT/OT Pelvis x-ray POD#3 05/07/18 22:40 Subjective: Susana Lama was seen at 1800 this evening. At that time her pain was well managed, though nursing staff says that she has only taken Naproxen today. She reports being "stiff and sore" but not "in pain". She denies any nausea, cp or sob. Objective: Vital Signs Temp Pulse Resp BP Pulse Ox 37.1 C 83 15 83/50 L 95 05/07/18 20:18 05/07/18 20:18 05/07/18 20:18 05/07/18 20:18 05/07/18 20:18 Laboratory Results 05/07/18 04:35 05/07/18 15:10 05/06/18 05/07/18 05/08/18 05:59 05:59 05:59 Intake Total 3220 2486 Output Total 2200 1750 Balance 1020 736 Well Appearing in NAD Right hip: dressings are clean dry intact some ecchymosis and edema no thigh numbness NVI distally full ROM of foot and ankle ICD10 Worksheet Patient Problems: Problems Problem Status Onset Hip dysplasia Acute
[2018-05-08] MEDS: SENNOSIDES/DOCUSATE SODIUM TAB PO SCH ×2 (09:27→21:22)
[2018-05-08] MEDS: PANTOPRAZOLE SODIUM 40 MG TAB PO SCH (09:27)
[2018-05-08] MEDS: NAPROXEN SODIUM 220 MG TAB PO SCH ×3 (09:27→21:22)
--- NOTE | 2018-05-08 09:56 | HOSPPROG ---
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 Reviewed plan of care with the patient's RN. *right hip pain due to hip dysplasia and femoroacetabular impingement w resultant labral tear -s/p MIRIAM -having some increase pain today / she describes as spasms, trial of scheduled Robaxin *hyperkalemia -resolved *hypoxemia -on room air during my evaluation *anemia, blood loss -hgb 7.7 -will follow *hypotension -systolic runs low at baseline -stop fluids *nausea post op -none during my evaluation *Plan: trial of scheduled Robaxin to see if we can get the spasms under control , encouraged her to take pain med, parker to be removed Subjective: Susana Lama is c/o pain at incision sites, radiates down her leg w coughing, and has some posterior hip pain. Objective: Vital Signs Temp Pulse Resp BP Pulse Ox 36.6 C 71 14 93/51 L 93 05/08/18 07:31 05/08/18 07:31 05/08/18 07:31 05/08/18 07:31 05/08/18 07:31 Laboratory Results 05/08/18 04:24 05/07/18 15:10 05/07/18 05/08/18 05/09/18 05:59 05:59 05:59 Intake Total 3220 3186 Output Total 2200 2750 Balance 1020 436 - Physical Exam Constitutional: uncomfortable, No not in pain Eyes: PERRL Ears, Nose, Mouth, Throat: hearing normal Respiratory: no respiratory distress Genitourinary: parker in urethra Skin: warm, other (swelling at right hip, upper thigh area) Neurologic: AAOx3 Psychiatric: interacting appropriately, other (tearful) ICD10 Worksheet Patient Problems: Problems Problem Status Onset Hip dysplasia Acute - ICD10 Problem Qualifiers (1) Hip dysplasia
[2018-05-08] MEDS ORDERED: oxyCODONE IR 5 MG TAB PO PRN (10:00)
[2018-05-08] MEDS: METHOCARBAMOL 750 MG TAB PO SCH ×3 (10:02→21:25)
[2018-05-08] MEDS ORDERED: SODIUM CL NASAL 45 ML BTL EACHNARE PRN (16:06)
[2018-05-08] MEDS ORDERED: NS 250 ML IV ONE (16:30)
--- NOTE | 2018-05-08 18:28 | SOAPPROG ---
SOAP Progress Note Assessment/Plan: Assessment: 42 yo F POD#2 s/p R MIRIAM. Doing well overall post-op. Plan: Continue pain control PO/IV meds PT/OT -- will need to do steps prior to d/c XR AP pelvis tomorrow, needs to be cleared by Dr. Montgomery prior to d/c Plan for potential d/c Sunday if dizziness resolves, XR ok, pain controlled 05/08/18 18:24 Subjective: Reports some dizziness when she tries to stand as well as GI upset (no nausea/ vomiting however). Pain controlled on IV meds. No CP, shortness of breath. Has been voiding since parker out. Also has some posterior thigh numbness, no distal numbness or weakness however Objective: Vital Signs Temp Pulse Resp BP Pulse Ox 36.6 C 71 13 93/52 L 99 05/08/18 15:22 05/08/18 15:22 05/08/18 15:22 05/08/18 15:22 05/08/18 15:22 Laboratory Results 05/08/18 04:24 05/07/18 15:10 05/07/18 05/08/18 05/09/18 05:59 05:59 05:59 Intake Total 3220 3186 1150 Output Total 2200 2750 1175 Balance 1020 436 -25 PE: R hip dressings c/d/i, minimal post-op swelling/ecchymosis Some posterior thigh numbness (75% of normal), no distal numbness in foot 5/5 TA, GSC, EHL Palpable DP pulse, BCR <2 sec ICD10 Worksheet Patient Problems: Problems Problem Status Onset Hip dysplasia Acute
[2018-05-08] MEDS: ASPIRIN EC 81 MG TAB PO SCH (19:00)
[2018-05-08] MEDS ORDERED: ACETAMINOPHEN 500 MG TAB PO ONE (19:45)
[2018-05-08] MEDS ORDERED: diphenhydrAMINE 25 MG CAP PO ONE (19:45)
[2018-05-08] MEDS: DIAZEPAM 2 MG TAB PO PRN (21:23)
[2018-05-09] MEDS ORDERED: methylPREDNISolone SOD SUCC 125 MG/2 ML VIAL IVP ONE (02:57)
[2018-05-09] MEDS ORDERED: FAMOTIDINE 20 MG/2 ML SDV IVP ONE (02:57)
[2018-05-09] MEDS: NAPROXEN SODIUM 220 MG TAB PO SCH ×3 (08:15→22:11)
[2018-05-09] MEDS: SENNOSIDES/DOCUSATE SODIUM TAB PO SCH ×2 (08:16→22:11)
[2018-05-09] MEDS: PANTOPRAZOLE SODIUM 40 MG TAB PO SCH (08:17)
[2018-05-09] MEDS: METHOCARBAMOL 750 MG TAB PO SCH ×3 (08:18→22:11)
[2018-05-09] MEDS: ASPIRIN EC 81 MG TAB PO SCH (08:38)
--- NOTE | 2018-05-09 09:10 | HOSPPROG ---
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 *right hip pain due to hip dysplasia and femoroacetabular impingement w resultant labral tear -s/p MIRIAM -doing much better today -spasms resolving *hyperkalemia -resolved *hypoxemia -on room air during my evaluation *anemia, acute blood loss -transfused last night w 2 units, had a urticarial reaction which has since resolved *hypotension -systolic runs low at baseline -given a fluid bolus yesterday -much improved today *nausea post op -none during my evaluation *Plan: poss dc today by surgical team. Subjective: Susana Lama is feeling much better today Objective: Vital Signs Temp Pulse Resp BP Pulse Ox 36.7 C 62 18 104/65 95 05/09/18 07:57 05/09/18 07:57 05/09/18 07:57 05/09/18 07:57 05/09/18 07:57 Laboratory Results 05/09/18 04:20 05/07/18 15:10 05/08/18 05/09/18 05/10/18 05:59 05:59 05:59 Intake Total 3186 1950 300 Output Total 2750 1175 Balance 436 775 300 - Physical Exam Constitutional: no apparent distress, appears nourished, not in pain Eyes: PERRL Ears, Nose, Mouth, Throat: hearing normal Respiratory: no respiratory distress Skin: warm, other (right hip and upper thigh area with less swelling today) Neurologic: AAOx3 Psychiatric: interacting appropriately ICD10 Worksheet Patient Problems: Problems Problem Status Onset Hip dysplasia Acute - ICD10 Problem Qualifiers (1) Hip dysplasia
[2018-05-10 07:38] VITALS: BP 101/66
[2018-05-10] MEDS: ASPIRIN EC 81 MG TAB PO SCH (08:40)
[2018-05-10] MEDS: SENNOSIDES/DOCUSATE SODIUM TAB PO SCH (08:41)
[2018-05-10] MEDS: PANTOPRAZOLE SODIUM 40 MG TAB PO SCH (08:41)
[2018-05-10] MEDS: METHOCARBAMOL 750 MG TAB PO SCH (08:41)
[2018-05-10] MEDS: NAPROXEN SODIUM 220 MG TAB PO SCH (08:41)
--- NOTE | 2018-05-10 11:15 | HOSPPROG ---
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 *right hip pain due to hip dysplasia and femoroacetabular impingement w resultant labral tear -s/p MIRIAM -looks great today *hyperkalemia -resolved *hypoxemia -on room air *anemia, acute blood loss -transfused w 2 units, had a urticarial reaction which has since resolved *hypotension -at her baselline *Plan: dc today Subjective: Susana Lama is feeling well today, pain well managed. Objective: Vital Signs Temp Pulse Resp BP Pulse Ox 37.0 C 63 16 101/66 96 05/10/18 07:38 05/10/18 07:38 05/10/18 07:38 05/10/18 07:38 05/10/18 07:38 Laboratory Results 05/09/18 04:20 05/07/18 15:10 05/09/18 05/10/18 05/11/18 05:59 05:59 05:59 Intake Total 1949 2049 Output Total 1175 Balance 775 2049 - Physical Exam Constitutional: no apparent distress, appears nourished Eyes: PERRL Ears, Nose, Mouth, Throat: hearing normal Respiratory: no respiratory distress Skin: warm Musculoskeletal: other (right hip with some swelling, clear dressing in place, mild ecchymosis on psychotherapist social worker side) Neurologic: AAOx3 Psychiatric: interacting appropriately ICD10 Worksheet Patient Problems: Problems Problem Status Onset Hip dysplasia Acute - ICD10 Problem Qualifiers (1) Hip dysplasia
--- NOTE | 2018-05-10 11:16 | ASMTLACE ---
LACE Length of stay for Answers: 4-6 days current admission Acuity / Level of Answers: Yes Care: Did the patient have an inpatient admission? # of Emergency department Answers: 0 visits in the last 6 months Score: 7 Date Signed: 05/10/2018 11:16 AM Electronically Signed By:AMBROSIO Edwards
--- NOTE | 2018-05-10 11:17 | ASMTCMCOM ---
CM Note CM Note Notes: Pt medically stable for d/c, no CM d/c needs identified. Date Signed: 05/10/2018 11:16 AM Electronically Signed By:AMBROSIO Edwards
== END 2018-05-10 12:54 | disposition home or self-care (01) | DRG 516 ==
LOC: F3N 11:02
PROVIDERS: ADMIT Orthopaedic Surgery Sports Medicine; ATTEND Orthopaedic Surgery Sports Medicine
PROC: BQ101ZZ Fluoroscopy of Right Hip using Low Osmolar Contrast (ICD-10-PCS; principal; 2018-05-06 12:30)
PROC: 0QS504Z Reposition Left Acetabulum with Internal Fixation Device, Open Approach (ICD-10-PCS; principal; 2018-05-06 12:30)
PROC: 30233N1 Transfusion of Nonautologous Red Blood Cells into Peripheral Vein, Percutaneous Approach (ICD-10-PCS; 2018-05-09)
DX: M25.851 Other specified joint disorders, right hip (principal); D62 Acute posthemorrhagic anemia; I95.81 Postprocedural hypotension; E87.5 Hyperkalemia; R11.0 Nausea; M25.852 Other specified joint disorders, left hip; Z23 Encounter for immunization
CPT/HCPCS: 97116-GP; 97161-GP; 97165-GO; 97530-GP; 97535-GO; C1713; G0008; J0690; J1100; J1200; J2250; J2274; J2405; J2704; J2765; J2930; J3010; P9016

== ENCOUNTER 2018-11-12 13:21 | Day surgery (SDC) | payer BC ==
--- NOTE | 2018-11-11 21:41 | PDGENHP ---
History and Physical - Chief Complaint RIGHT HIP PAIN - History of Present Illness Diagnosis: 1. 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 ~Susana Hienjoys trail running, hiking, rock climbing, cycling, swimming, cross country skiing, and snowboarding. Susana Lama's~Right~hip pain started~July 2016 after falling while snowboarding, with~little~recalled trauma or injury, and with~no~previous complaints.~Susana Hi has~a known history of hip dysplasia. Susana Lama was referred by Dr. Pena. Presentation today is of~anterior~right~hip pain. ~The hip~does not~wake her~at night and~does~click and catch on~her. Sitting~can be uncomfortable~for her.~ Susana Hidoes~report suffering from lower back pain episodes. She has posterior thigh pain pain down right leg but does not go past knee. Susana Hihas not~participated in physical therapy and has not~tried other conservative measures..~Didi~has not~received sufficient symptomatic improvement. Susana Hihas not~utilized medication for pain management. Susana Hidenies issues with the left~hip. ~ Susana Hiunderstands that~didi~has a hip and pelvis problem which should be researched and wishes to get a better understanding of~her~hip status, followed by an establishment of a treatment strategy, hoping~didi~would be able to get back to~her~well being active life. History: Past medical history:~~ None which is relevant~ Relevant familial history:~None which is relevant~ Past surgical history:~ Right MIRIAM Right Hip Scope Susana Hihas no adverse reactions to general anesthesia. I have reviewed, verified and agree with the past medical, surgical, family and social history. Current Medications:~currently has no medications in their medication list. ALLERGIES:~has No Known Allergies. Objective: Physical Examination: Susana Hiis 5~feet~7~inches tall and weighs~125~Lbs. Susana Hiis AAO x3; she~is well-nourished, in NAD. Skin is warm and dry. ~Breathing is non-labored. ~CV with RRR by pulse. Abdomen is soft, NTND. Currently,~she~walks with a~normal~gait. Trendelenburg sign is~negative~and proprioception~is reduced,~right~side. She~presents~with mild~signs of joint laxity.~Beightons Score:~1 Lower spine examination is~negative~for sciatic or femoral nerve irritation with negative~SLR &~femoral stretch tests. Range of motion of the spine is normal~for flexion, extension, and rotations,~with no~associated pain. Strength, Sensation and pulses are~normal -~bilaterally~BILATERAL GREAT TOE PARATHESIA and NUMBNESS Ankles and knees exams are~normal~and~no~mal-alignment is evident.~ She~has~leg length discrepancy.~LEFT SHORT 1 CM Thigh circumference is~symmetric~with no evidence for muscle atrophy~on both~ sides. Hip ROM (degrees): FL ER At 90~hip FL IR At 90~hip FL AB AD EX IR Neutral hip ER Neutral hip R 110 45 40 40 5 10 45 30 L 115 50 30 40 5 10 55 35 Specific hip and pelvis tests: Impingement Test MIRIAM Roll Add. Longus R +++ +++ Negative Negative L Negative Negative Negative Negative Glut. Med ITB Posterior Imp R Negative 5/5 strength Negative 5/5 strength Negative L Negative 5/5 strength Negative 5/5 strength Negative Squeeze test measured~normal Bony Symphysis pubis is~pain free~to touch while concentric activity of the rectus abdominis, does not~produce pain at its insertion. Ilio Psos specific tests are~negative for pain during cycling for~both hips~and remarkable for non painful snap HF has~no pain, good strength~both hips. Right hip~capsule tenderness Greater trochanteric burse is~painful~on the right hip. Piriformis tests: FAIR is~negative,~with no~local signs of neuritis related to sciatic nerve. SIJs examination is~normal~with~normal~MIRIAM in relation and local tenderness. Hamstrings tests are~negative~functional contraction and negative~tendinopathy both hips. On a daily basis, the following percentages reflectJosh Lama's overall total pain : Deep hip:~80% Right GT:~20% Imaging: Radiology studies which I~have personally reviewed, analyzed and measured are below: XR: AP of the hip and pelvis: Performed in a~good~technique Coccyx~is at the level of the~pubic symphysis 0~degrees [place]~Lines are preserved. Minimal~Pathological signs are seen in the Symphysis Pubis.~ Minimal~Pathological signs are seen at the Ischial~tuberosity. ~ Specific measurements show: NSA~ LCE Sourcil~Angle Sharp's angle Lat. Cam Lat. Pincer C.Over~sign Head~Coverage % ATDmm R N 17 12 41 + - - 72 N L N 24 5 37 + - - 78 N Pos. wall sign ISS NAD ~~Dysplasia Comments R ++ Negative 15.3~mm ++ L ++ Negative 17.4~mm + Sclerosis Sup. Lat. OA Cysts Joint Space-WBZ Joint Space-Medial R + Negative Negative 5.3~mm 5.7~mm/2.4mm L + Negative Negative 4.8~mm 4.9~mm X Table lateral: Anterior cam lesion is~seen~on both hips. Alpha Angle: ~ Right~76~dergrees Left~67~degrees MRI shows:~labral tear with labral hypertrophy, good cartilage quality, no bone edema or cysts. Impression and plan: Sheree Hiis a~43 y.o.~active female~suffering from symptomatic~Right~hip pain due to Hip Dyplasia~and~Femoroacetabular impingement (ILA) Cam type,~with~ resultant labral tear causing significant disability to~her~and altering~her~ sport and life activities. She also had early OA signs in the form of medial joint space narrowing. Physical examination, imaging, and~her~story correspond with the diagnosis mentioned above. I explained that hip dysplasia is a condition wherein the hip joint has excessive play~and instability due to a variety of factors, including the depth and adequacy of the socket, the orientation of the femur bone, and ligament laxity around the hip joint. Dysplasia ranges in severity from borderline to florentino, with treatment options being specific to the specific nature of the problem. Left untreated, the instability in the hip joint can cause progressive tearing of the labrum and deterioration of the surface cartilage, ultimately resulting in progressive osteoarthritis of the hip. I explained that femoroacetabular impingement (ILA - Cam type) arises due to a bony or soft tissue conflict between the femur (ball) and acetabulum (socket) caused by an abnormality in the shape of the femoral head and neck. Over time, repetitive impingement can result in damage to the labrum and adjacent surface cartilage within the socket, ultimately giving rise to progressive osteoarthritis of the hip. I explained that although a labral tear can be a source of pain, it is rarely the root of the problem and typically occurs secondary to an underlying abnormality in the shape and mechanics of the hip joint. I reviewed conservative treatment options for Dysplasia and ILA including activity modification to avoid positions of impingement or instability, physical therapy, non-steroidal anti-inflammatory medications, and various injections (corticosteroid and PRP) aimed at reducing inflammation in the hip joint or/and preventing dynamic instability and impingement. PRP injections may promote healing and reduce symptoms in certain cases but it will not repair chronically damaged tissue. Although these measures may help to buy time~and reduce current level of symptoms, they are not a definitive solution to the problem given the underlying abnormality in the shape of the hip joint. Patients who have failed conservative management and continue to experience symptoms are candidates for definitive surgical treatment, which may consist of hip arthroscopy alone or in combination with more invasive bony realignment procedures of the hip socket and/or femur called periacetabular osteotomy (MIRIAM) or derotational femoral osteotomy (DFO). Hip arthroscopy typically includes treating the labrum with either repair or reconstruction of the torn labrum; as well as addressing the underlying abnormalities by restoring the normal shape to the hip joint. If the cartilage is damaged a Microfracture surgical procedure may also be necessary to help stimulate the growth of fibrocartilage. If a patient requires a labral reconstruction or a Microfracture, the initial rehabilitation from the surgery may take longer, but the corporate learning consultant results are typically favorable. I reviewed the technical aspects of periacetabular osteotomy (MIRIAM) including risks, benefits, and expected course of recovery.~Susana Lama~understands that MIRIAM is an inpatient procedure carried out through two medium sized incisions on the front and back of the hip joint. The hip socket is cut, realigned, and stabilized with 2 3 internal screws. Risks include infection, bleeding, injury to nearby nerves or vessels, stiffness, persistent pain, instability, failure of bony healing, implant related complications, and venous thromboembolic disease. Rarely, revision surgery may be required to address these problems. Risks, potential complications, side effects and recovery from surgical procedure were discussed in length. We explained how this surgery is an open procedure, and though patients tend to do well in the long-term, it involves significant pain in the first 2-4 weeks post-op and a rather lengthy rehab.~Overall recovery takes approximately 6 12~months depending on the extent of damage and degree of repair. Susana Hiunderstands that she~will undergo hip arthroscopy 1 week prior to the MIRIAM to address damage inside the hip joint. Susana Hiunderstands that hip arthroscopy and MIRIAM are two separate procedures that are best performed one week apart, with the arthroscopy commencing first to "tighten up" any pathology evident in the hip joint (labral repair, etc.) and the MIRIAM open procedure occurring 7-10 days later to realign the acetabulum. We also discuss the implications of the minimal early OA and surgical outcome. Susana Hiwill review the info presented. In order to obtain more detailed information regarding the alignment, orientation, and shape of the bony hip and pelvis I will order a CT scan to be performed. The results of the CT scan, including femoral torsion and acetabular version measured values and 3D images, will aid me in deciding on the best treatment strategy and surgical pre-planning. Susana Hiwill contact us if she~wishes to pursue further treatment in the future. Susana Hiis happy with this plan. I have also supplied~her~with handouts, outlining the expected surgical treatment and rehab involved. I wish~Susana Hiall the best, ~~ Sergo Gaffney, NORMA History Information - Allergies/Home Medication List Allergies/Adverse Reactions: No Known Allergies Allergy (Verified 11/07/18 12:02) Home Medications: Herbals/Supplements -Info Only 04/24/18 [Last Taken 11/07/18] I have personally reviewed and updated: medical history - Past Medical History Additional medical history: right hip dysplasia. post depression - Surgical History Additional surgical history: MIRIAM performed today. breast augmentation. wisdom tooth removal - Family History Positive for: non-pertinent - Social History Smoking Status: Never smoked Review of Systems Review of Systems: Physical Exam Physical Exam:
[2018-11-12] MEDS ORDERED: PREGABALIN 150 MG CAP PO ONE (13:31)
[2018-11-12] MEDS ORDERED: ACETAMINOPHEN 500 MG TAB PO ONE (13:31)
[2018-11-12] MEDS ORDERED: ceFAZolin 2 GM/DEXTROSE 100 ML IV ONE (13:31)
[2018-11-12] MEDS ORDERED: LR 1,000 ML IV ONE (13:32)
[2018-11-12] MEDS ORDERED: LIDOCAINE 1% 300 MG/30 ML SDV ONE (15:28)
--- NOTE | 2018-11-12 16:04 | PDANEPAE ---
ANE Past Medical History - Cardiovascular History Hx Hypertension: No Hx Arrhythmias: No Hx Chest Pain: No Hx Coronary Artery / Peripheral Vascular Disease: No Hx CHF / Valvular Disease: No Hx Palpitations: No - Pulmonary History Hx COPD: No Hx Asthma/Reactive Airway Disease: No Hx Recent Upper Respiratory Infection: No Hx Oxygen in Use at Home: No Hx Sleep Apnea: No Sleep Apnea Screening Result - Last Documented: Negative - Neurologic History Hx Cerebrovascular Accident: No Hx Seizures: No Hx Dementia: No - Endocrine History Hx Diabetes: No - Renal History Hx Renal Disorders: No - Liver History Hx Hepatic Disorders: No - Neurological & Psychiatric Hx Hx Neurological and Psychiatric Disorders: No Neurological / Psychiatric History Comment: post- depression, 2012 - Cancer History Hx Cancer: No - Congenital Disorder History Hx Congenital Disorders: No - GI History Hx Gastrointestinal Disorders: No - Other Health History Other Health History: none - Chronic Pain History Chronic Pain: Yes (R HIP) - Surgical History Prior Surgeries: 05/06/18 right MIRIAM with Dinora-Vinicius. 04/29/18 right hip scope with Dinora-Vinicius. DENTAL SURG ANE Review of Systems Review of Systems: - Exercise capacity METS (RN): 4 METS ANE Patient History - Allergies Allergies/Adverse Reactions: No Known Allergies Allergy (Verified 11/07/18 12:02) - Home Medications Home Medications: Herbals/Supplements -Info Only 04/24/18 [Last Taken 11/07/18] - NPO status NPO Since - Liquids (Date): 11/12/18 NPO Since - Liquids (Time): 11:30 NPO Since - Solids (Date): 11/11/18 NPO Since - Solids (Time): 21:00 - Smoking Hx Smoking Status: Never smoked - Family Anes Hx Family Hx Anesthesia Complications: none ANE Labs/Vital Signs - Vital Signs Blood Pressure: 102/65 Heart Rate: 60 Respiratory Rate: 16 O2 Sat (%): 100 Height: 170.18 cm Weight: 57.606 kg ANE Physical Exam - Airway Mallampati Score: Class 2 - ASA Status ASA Status: I ANE Anesthesia Plan Anesthesia Plan: GA w LMA
[2018-11-12] MEDS ORDERED: fentaNYL 100 MCG/2 ML INJ ONE (16:07)
[2018-11-12] MEDS ORDERED: MIDAZOLAM 2 MG/2 ML VIAL ONE (16:07)
[2018-11-12] MEDS ORDERED: PROPOFOL 200 MG/20 ML VIAL ONE (16:07)
[2018-11-12] MEDS ORDERED: NALOXONE HCL 0.4 MG/ML INJ IVP PRN (16:46)
[2018-11-12] MEDS ORDERED: LR 500 ML IV PRN (16:46)
[2018-11-12] MEDS ORDERED: fentaNYL 100 MCG/2 ML INJ IVP PRN (16:46)
[2018-11-12] MEDS ORDERED: ONDANSETRON 4 MG/2 ML VIAL IVP PRN (16:46)
--- NOTE | 2018-11-12 16:47 | POSTANESTH ---
Post Anesthetic Evaluation Cardiovascular Status: Normal, Stable Respiratory Status: Normal, Stable Level of Consciousness/Mental Status: Can Participate in Eval Pain Control: Adequate, Prn Tx Ordered Nausea/Vomiting Control: Adequate, Prn Tx Ordered Complications Possibly Related to Anesthesia: None Noted
[2018-11-12 18:52] VITALS: BP 100/73
== END 2018-11-12 18:30 | disposition home or self-care (01) ==
LOC: FSGY 13:21
PROVIDERS: ATTEND Orthopaedic Surgery Sports Medicine
PROC: 0QP204Z Removal of Internal Fixation Device from Right Pelvic Bone, Open Approach (ICD-10-PCS; principal; 2018-11-12 15:00)
DX: T85.848A Pain due to other internal prosthetic devices, implants and grafts, initial encounter (principal)
CPT/HCPCS: J0690; J2250; J2704; J3010